=== PATIENT | male | born 1945 | race Hispanic/Latino ===

== ENCOUNTER 2019-09-26 21:29 | Emergency (ER) | payer MEDICARE ==
[~2019-09-26 21:29] MED LIST: AEC81 PO; ATOR10 PO; HYDR25TA PO; LISI40TA4 PO; METF-444 PO; OMEP20TA25 PO; PARO10TA71 PO; TAMS-1 PO
[2019-09-26 22:04] LABS: APPEARANCE,URINE Clear (CLEAR); BILIRUBIN,URINE Negative (NEGATIVE); COLOR,URINE Yellow (YELLOW); GLUCOSE, URINE (UA) Negative (NEGATIVE); KETONES,URINE Negative (NEGATIVE); LEUKOCYTE ESTERASE ,URINE Small (NEGATIVE); NITRATE,URINE Negative (NEGATIVE); OCCULT BLOOD,URINE Small (NEGATIVE); PROTEIN,URINE Negative (NEGATIVE); UROBILINOGEN,URINE 0.2 mg/dL (0.2-1.0)
[2019-09-26 22:30] LABS: BACTERIA,URINE None Seen /HPF (None Seen); RBC,URINE 0-1 /HPF (0-1); SQUAMOUS EPITHELIAL CELL,UR Rare /HPF (0-2); WBC,URINE None Seen /HPF (0-1)
== END 2019-09-26 23:00 | disposition home or self-care (01) ==
LOC: EDH 21:29
DX: N40.1 Benign prostatic hyperplasia with lower urinary tract symptoms (principal); R33.9 Retention of urine, unspecified; I10 Essential (primary) hypertension; I25.10 Atherosclerotic heart disease of native coronary artery without angina pectoris; E11.9 Type 2 diabetes mellitus without complications
CPT/HCPCS: 51702; 81001

== ENCOUNTER 2019-09-27 13:00 | Emergency (ER) | payer MEDICARE ==
[2019-09-27 14:05] LABS: BILIRUBIN,URINE NEGATIVE (NEGATIVE); COLOR,URINE YELLOW (YELLOW); GLUCOSE, URINE (UA) 100 mg/dL (NEGATIVE); KETONES,URINE 5 mg/dL (NEGATIVE); LEUKOCYTE ESTERASE ,URINE SMALL (NEGATIVE); NITRATE,URINE NEGATIVE (NEGATIVE); OCCULT BLOOD,URINE LARGE (NEGATIVE); PH,URINE 5.5 (5.0-8.0); PROTEIN,URINE 100 mg/dL (NEGATIVE)
[2019-09-27 14:23] LABS: APPEARANCE,URINE CLOUDY (CLEAR)
[2019-09-27 14:24] LABS: RBC,URINE >100 /HPF (0-1)
[2019-09-27 14:25] LABS: BACTERIA,URINE Few /HPF (None Seen); SQUAMOUS EPITHELIAL CELL,UR None Seen /HPF (0-2)
== END 2019-09-27 15:01 | disposition home or self-care (01) ==
LOC: EDH 13:00
DX: N39.0 Urinary tract infection, site not specified (principal); I25.10 Atherosclerotic heart disease of native coronary artery without angina pectoris; E11.9 Type 2 diabetes mellitus without complications; I10 Essential (primary) hypertension; Z98.890 Other specified postprocedural states

== ENCOUNTER 2020-12-28 08:38 | Observation (INO) | payer MEDICARE ==
[~2020-12-28] VITALS: Ht 165.1 cm; Wt 80.4 kg
[~2020-12-28 08:38] MED LIST changes: -LISI40TA4 PO; +LISI40TA9 PO
[2020-12-28 08:59] LABS: BASOPHILS % (AUTO) 0.3 % (0.0-5.0); HEMATOCRIT 42.9 % (42-54); LYMPHOCYTES % (AUTO) 19.3 % (21.0-51.0); MEAN CORPUSCULAR HEMOGLOBIN 26.7 pg (27.0-33.0); MEAN CORPUSCULAR HGB CONC 32.2 g/dL (32.0-36.0); MEAN CORPUSCULAR VOLUME 83.1 fL (79-99); NEUTROPHILS % (AUTO) 72.1 % (40.0-77.0); PLATELET COUNT (AUTO) 174 K/uL (130-400); RED BLOOD CELL COUNT(AUTO) 5.16 MIL/uL (4.50-6.20); RED CELL DISTRIBUTION WIDTH 13.6 % (11.0-15.5)
[2020-12-28 09:01] LABS: APPEARANCE,URINE Clear (CLEAR); BILIRUBIN,URINE Negative (NEGATIVE); COLOR,URINE Yellow (YELLOW); GLUCOSE, URINE (UA) Negative (NEGATIVE); KETONES,URINE Negative (NEGATIVE); LEUKOCYTE ESTERASE ,URINE Trace (NEGATIVE); NITRATE,URINE Negative (NEGATIVE); OCCULT BLOOD,URINE Small (NEGATIVE); PROTEIN,URINE Trace mg/dL (NEGATIVE); UROBILINOGEN,URINE 0.2 mg/dL (0.2-1.0)
[2020-12-28 09:10] LABS: BACTERIA,URINE Few /HPF (None Seen); RBC,URINE 0-1 /HPF (0-1); SQUAMOUS EPITHELIAL CELL,UR Few /HPF (0-2)
[2020-12-28 09:23] LABS: CREATININE 1.1 mg/dL (0.5-1.5); POTASSIUM 3.6 mmol/L (3.5-5.1)
[2020-12-28 09:27] LABS: ALBUMIN 3.6 g/dL (3.5-5.0); BILIRUBIN,TOTAL 0.5 mg/dL (0.2-1.0); TOTAL PROTEIN, SERUM 7.4 g/dL (6.0-8.3)
[2020-12-28] MEDS ORDERED: ACETAMINOPHEN 325 MG TAB PO PRN (10:45)
[2020-12-28] MEDS ORDERED: AZITHROMYCIN 500MG+NS 250ML 250 ML IV SCH (10:45)
[2020-12-28] MEDS ORDERED: DEXAMETHASONE SOD PHOSPHATE 4 MG/ML 1ML VIAL IVP SCH (10:45)
[2020-12-28] MEDS ORDERED: CEFTRIAXONE SODIUM 1 GM IVP SCH (10:45)
[2020-12-28] MEDS ORDERED: DEXAMETHASONE SOD PHOSPHATE 10MG/ML 1ML VIAL ONE (10:52)
[2020-12-28] MEDS ORDERED: AZITHROMYCIN 500MG+NS 250ML 250 ML IV ONE (10:52)
[2020-12-28] MEDS ORDERED: CEFTRIAXONE SODIUM 1 GM ONE (10:52)
[2020-12-28] MEDS ORDERED: GLUCAGON 1MG KIT 1 MG ML IM PRN (12:15)
[2020-12-28] MEDS ORDERED: DEXTROSE 50%-WATER 50 ML DISP.SYRIN IV PRN (12:15)
[2020-12-28] MEDS ORDERED: ERGOCALCIFEROL (VITAMIN D2) 50,000 UNIT CAPSULE PO ONE (12:45)
[2020-12-28 13:09] LABS: CREATINE KINASE, TOTAL 330 U/L (21-232); MYOGLOBIN 125 ng/mL (10-92); TROPONIN I < 0.04 ng/mL (0.00-0.06)
[2020-12-28 13:10] LABS: CRP QUANTITATIVE 27.4 mg/L (0.00-9.0)
[2020-12-28 14:51] LABS: HEMATOCRIT 43.3 % (42-54); LYMPHOCYTES % (AUTO) 10.4 % (21.0-51.0); MEAN CORPUSCULAR HEMOGLOBIN 26.7 pg (27.0-33.0); MEAN CORPUSCULAR HGB CONC 31.9 g/dL (32.0-36.0); MEAN CORPUSCULAR VOLUME 83.8 fL (79-99); MONOCYTES % (AUTO) 2.6 % (3.0-13.0); NEUTROPHILS % (AUTO) 86.7 % (40.0-77.0); PLATELET COUNT (AUTO) 191 K/uL (130-400); RED BLOOD CELL COUNT(AUTO) 5.17 MIL/uL (4.50-6.20); RED CELL DISTRIBUTION WIDTH 13.7 % (11.0-15.5); WHITE BLOOD COUNT (AUTO) 3.9 K/uL (4.8-10.8)
[2020-12-28] MEDS ORDERED: ERGOCALCIFEROL (VITAMIN D2) 50,000 UNIT CAPSULE ONE (14:58)
[2020-12-28 15:00] LABS: CREATININE 1.1 mg/dL (0.5-1.5); POTASSIUM 3.8 mmol/L (3.5-5.1)
[2020-12-28 16:15] VITALS: BP 150/80
[2020-12-28] MEDS: INSULIN HUMULIN R 100 UNIT/ML 3ML SQ SCH ×2 (17:36→20:05)
[2020-12-28] MEDS ORDERED: FINA5TAB41 PO (18:00)
[2020-12-28] MEDS ORDERED: AMLO-257 PO (18:00)
[2020-12-28] MEDS ORDERED: HYDR-3830 PO (18:00)
[2020-12-28 19:50] VITALS: BP 142/83
[2020-12-28] MEDS: ACETYLCYSTEINE 600 MG CAPSULE PO SCH (20:02)
[2020-12-28 20:31] LABS: CREATINE KINASE, TOTAL 321 U/L (21-232); MYOGLOBIN 175 ng/mL (10-92); TROPONIN I < 0.04 ng/mL (0.00-0.06)
[2020-12-29] VITALS: BP 147/86
[2020-12-29 03:10] VITALS: BP 127/73
[2020-12-29] MEDS: INSULIN HUMULIN R 100 UNIT/ML 3ML SQ SCH ×2 (06:35→11:20)
[2020-12-29 08:00] VITALS: BP 148/67
[2020-12-29] MEDS: ACETYLCYSTEINE 600 MG CAPSULE PO SCH (08:09)
[2020-12-29] MEDS ORDERED: ENOXAPARIN SODIUM 40 MG/0.4 ML SYRINGE SQ SCH (09:00)
[2020-12-29] MEDS ORDERED: ENOXAPARIN SODIUM 30 MG/0.3 ML SQ SCH (09:00)
[2020-12-29] MEDS ORDERED: ASCORBIC ACID 500 MG TAB PO SCH (09:00)
[2020-12-29] MEDS ORDERED: ZINC SULFATE 220 CAPSULE PO SCH (09:00)
[2020-12-29] MEDS ORDERED: METFORMIN HCL 500 MG TABLET PO SCH (16:30)
[2020-12-29] MEDS ORDERED: HYDROXYZINE HCL 10 MG TABLET PO SCH (21:00)
[2020-12-30] MEDS ORDERED: FINASTERIDE 5 MG TABLET PO SCH (09:00)
[2020-12-30] MEDS ORDERED: TAMSULOSIN HCL 0.4 MG CAP.ER.24H PO SCH (09:00)
[2020-12-30] MEDS ORDERED: ATORVASTATIN CALCIUM 40 MG TABLET PO SCH (09:00)
[2020-12-30] MEDS ORDERED: LISINOPRIL 40 MG TABLET PO SCH (09:00)
[2020-12-30] MEDS ORDERED: AMLODIPINE BESYLATE 5 MG TAB PO SCH (09:00)
[2020-12-30] MEDS ORDERED: ASPIRIN 81 MG EC TAB PO SCH (09:00)
== END 2020-12-29 11:30 | disposition home or self-care (01) ==
LOC: EDH 08:38 → INTOOBSV 10:37 → EDHIP 10:37 → 2AH 14:55
PROVIDERS: ADMIT Hospitalist; ATTEND Hospitalist
DX: U07.1 COVID-19 (principal); J12.82 Pneumonia due to coronavirus disease 2019; I10 Essential (primary) hypertension; E78.5 Hyperlipidemia, unspecified; E11.9 Type 2 diabetes mellitus without complications; I25.10 Atherosclerotic heart disease of native coronary artery without angina pectoris; Z79.84 Long term (current) use of oral hypoglycemic drugs; Z79.899 Other long term (current) drug therapy
CPT/HCPCS: 36415; 71045; 80053; 81001; 82550 ×2; 82728; 82948 ×3; 83615; 83874 ×2; 84484 ×2; 85025 ×2; 85378; 86140; 87040 ×2; 87426; 93005; 96372; 99285; G0378 ×24; J0456; J0696 ×2; J1100; J1650; J1815; 80048

== ENCOUNTER 2020-12-30 10:58 | Emergency (ER) | payer MEDICARE ==
[~2020-12-30 10:58] MED LIST changes: +AMLO-257 PO; +FINA5TAB41 PO; +HYDR-3830 PO; -HYDR25TA PO; -OMEP20TA25 PO; -PARO10TA71 PO
[2020-12-30] MEDS ORDERED: ALBUTEROL INHALER 90MCG/INH IH ONE (11:53)
[2020-12-30] MEDS ORDERED: IBUPROFEN 600 MG TABLET ONE (11:53)
[2020-12-30 12:54] LABS: BASOPHILS % (AUTO) 0.2 % (0.0-5.0); HEMATOCRIT 42.3 % (42-54); LYMPHOCYTES % (AUTO) 12.7 % (21.0-51.0); MEAN CORPUSCULAR HEMOGLOBIN 27.4 pg (27.0-33.0); MEAN CORPUSCULAR HGB CONC 33.3 g/dL (32.0-36.0); MEAN CORPUSCULAR VOLUME 82.3 fL (79-99); MONOCYTES % (AUTO) 4.7 % (3.0-13.0); PLATELET COUNT (AUTO) 206 K/uL (130-400); RED BLOOD CELL COUNT(AUTO) 5.14 MIL/uL (4.50-6.20); RED CELL DISTRIBUTION WIDTH 13.8 % (11.0-15.5); WHITE BLOOD COUNT (AUTO) 5.5 K/uL (4.8-10.8)
[2020-12-30 13:00] LABS: CREATININE 1.1 mg/dL (0.5-1.5); POTASSIUM 3.3 mmol/L (3.5-5.1)
[2020-12-30 13:04] LABS: ALBUMIN 3.4 g/dL (3.5-5.0); BILIRUBIN,TOTAL 0.4 mg/dL (0.2-1.0); CRP QUANTITATIVE 45.1 mg/L (0.00-9.0); TOTAL PROTEIN, SERUM 7.4 g/dL (6.0-8.3)
[2020-12-30 14:15] LABS: ERYTHROCYTE SEDIMENTATION RATE 26 MM/HR (0-20)
[2020-12-30] MEDS ORDERED: ACETAMINOPHEN EXTRA STRENGTH 500 MG TABLET ONE (14:21)
[2020-12-30] MEDS ORDERED: ENOXAPARIN SODIUM 60 MG/0.6 ML SQ ONE (15:15)
[2020-12-30] MEDS ORDERED: DEXAMETHASONE SOD PHOSPHATE 10MG/ML 1ML VIAL ONE (15:16)
== END 2020-12-30 16:22 | disposition home or self-care (01) ==
LOC: EDH 10:58
DX: U07.1 COVID-19 (principal); J20.9 Acute bronchitis, unspecified; R09.02 Hypoxemia; E11.9 Type 2 diabetes mellitus without complications; I10 Essential (primary) hypertension; I25.10 Atherosclerotic heart disease of native coronary artery without angina pectoris; Z87.891 Personal history of nicotine dependence
CPT/HCPCS: 36415; 71045; 80053; 82728; 85025; 85651; 86140; 96372; 96374; 99284; J1100; J1650